=== PATIENT | female | born 1950 | race Caucasian/White ===

== ENCOUNTER 2024-06-02 11:08 | Observation (INO) ==
[2024-06-02 13:46] LABS: ALANINE AMINOTRANSFERASE 28 Units/L (12-78); ALBUMIN 3.7 g/dL (3.4-5.0); ALKALINE PHOSPHATASE 58 Units/L (46-116); ASPARTATE AMINO TRANSFERASE 25 Units/L (15-37); BLOOD UREA NITROGEN 62 mg/dL (7-18); CALCIUM 10.3 mg/dL (8.5-10.1); CARBON DIOXIDE 33.4 mmol/L (21-32); CHLORIDE 100 mmol/L (98-107); COR NA(FOR HYPERGLY) 145 mmol/L (136-145); CREATININE 1.86 mg/dL (0.55-1.02); GLUCOSE 321 mg/dL (65-99); POTASSIUM 3.9 mmol/L (3.5-5.1); SODIUM 140 mmol/L (136-145); TOTAL PROTEIN 8.1 g/dL (6.4-8.2); eGFR NON BLACK RACES 28 (>60)
[2024-06-02 13:57] LABS: BASOPHILS # (AUTO) 0.1 X10^3/uL (0.0-0.1); BASOPHILS % (AUTO) 0.5 % (0.2-1.0); EOSINOPHILS # (AUTO) 0.2 x10^3/uL (0.0-0.2); EOSINOPHILS % (AUTO) 1.4 % (0.9-2.9); HEMATOCRIT 41.6 % (36.0-47.0); HEMOGLOBIN 13.7 g/dL (12.0-16.0); LYMPHOCYTES # (AUTO) 3.8 X10^3/uL (1.3-2.9); LYMPHOCYTES % (AUTO) 32.5 % (21.0-51.0); MEAN CORPUSCULAR HEMOGLOBIN 29.3 pg (27.0-34.0); MEAN CORPUSCULAR VOLUME 88.7 fL (80.0-100.0); MEAN PLATELET VOLUME 9.3 fL (7.4-11.0); MONOCYTES # (AUTO) 0.5 x10^3/uL (0.3-0.8); MONOCYTES % (AUTO) 4.6 % (0.0-13.0); NEUTROPHILS # (AUTO) 7.2 x10^3/uL (2.2-4.8); PLATELET COUNT 295 X10^3/uL (150.0-450.0); RED BLOOD COUNT 4.69 X10^6/uL (3.5-5.4); RED CELL DISTRIBUTION WIDTH 14.2 % (11.6-16.5); WHITE BLOOD COUNT 11.7 X10^3/uL (3.6-10.0)
[2024-06-02] MEDS: LOVENOX INJ 80 MG SYR SC SCH (14:06)
[2024-06-02] MEDS: LR 1,000 ML IV 1,000 ML IV SCH (14:07)
[2024-06-02 14:33] VITALS: BMI 33.3
[2024-06-02] MEDS: NovoLIN R (or HumuLIN R) SUBCUT PRN (17:23)
[2024-06-02] MEDS: SNACK - Diabetic Appropriate PO SCH (20:37)
[2024-06-02] MEDS: DILAUDID INJ IVP PRN (23:28)
[2024-06-03 08:38] LABS: BASOPHILS # (AUTO) 0.1 X10^3/uL (0.0-0.1); EOSINOPHILS # (AUTO) 0.3 x10^3/uL (0.0-0.2); EOSINOPHILS % (AUTO) 3.2 % (0.9-2.9); HEMOGLOBIN 12.6 g/dL (12.0-16.0); LYMPHOCYTES # (AUTO) 3.6 X10^3/uL (1.3-2.9); LYMPHOCYTES % (AUTO) 46.8 % (21.0-51.0); MEAN CORPUSCULAR HEMOGLOBIN 29.2 pg (27.0-34.0); MEAN CORPUSCULAR HGB CONC 33.3 g/dL (33.0-35.0); MEAN CORPUSCULAR VOLUME 87.7 fL (80.0-100.0); MONOCYTES # (AUTO) 0.5 x10^3/uL (0.3-0.8); MONOCYTES % (AUTO) 6.8 % (0.0-13.0); NEUTROPHILS # (AUTO) 3.3 x10^3/uL (2.2-4.8); NEUTROPHILS % (AUTO) 42.2 % (42.0-75.0); PLATELET COUNT 267 X10^3/uL (150.0-450.0); RED BLOOD COUNT 4.34 X10^6/uL (3.5-5.4); RED CELL DISTRIBUTION WIDTH 13.8 % (11.6-16.5); WHITE BLOOD COUNT 7.8 X10^3/uL (3.6-10.0)
[2024-06-03 08:43] LABS: ALBUMIN 3.2 g/dL (3.4-5.0); CALCIUM 9.9 mg/dL (8.5-10.1); CARBON DIOXIDE 33.5 mmol/L (21-32); COR CA(FOR HYPOALB) 10.5 mg/dL (8.5-10.1); CREATININE 1.52 mg/dL (0.55-1.02); POTASSIUM 3.3 mmol/L (3.5-5.1); TOTAL PROTEIN 7.1 g/dL (6.4-8.2)
--- NOTE | 2024-06-03 09:55 | DR.H&P ---
H&P History & Physical for Day of: H&P Date: 06/02/24 Chief Complaint Chief Complaint: cold painful right foot History of Present Illness History of Present Illness: . This is a 73-year-old female, diabetes and who has had a nonhealing wound to her right heel with bilateral rest pain. She has had bilateral lower extremity intervention including atherectomy and angioplasty right anterior tibial artery done in April. In May had atherectomy and drug-coated angioplasty of the takeoff of the left anterior tibial artery. She has had new onset of this pain in her right foot. Past Medical History Past Medical History: Diabetes, Dyslipidemia, GERD, Gout and Hypertension Past Surgical History Surgical History: Appendectomy, , Hysterectomy and Ortho Surgery Family History Family Medical History: Diabetes Mellitus, Cancer, [place], Coronary Artery Disease and Hypertension Social History Does patient currently use any type of tobacco product: No Type of Tobacco Use: None Alcohol Use: None Drug Use: None Medications Home Medications: Home Medications Medication Instructions Recorded Confirmed Type allopurinol 100 mg tablet 100 mg PO DAILY 06/02/24 06/02/24 History atorvastatin 20 mg tablet 20 mg PO HS 06/02/24 06/02/24 History clonidine HCl 0.3 mg tablet 0.3 mg PO DAILY 06/02/24 06/02/24 History fenofibrate 160 mg tablet 160 mg PO DAILY 06/02/24 06/02/24 History furosemide 20 mg tablet 20 mg PO DAILY 06/02/24 06/02/24 History gabapentin 600 mg tablet 600 mg PO DAILY 06/02/24 06/02/24 History glimepiride 4 mg tablet 4 mg PO DAILY 06/02/24 06/02/24 History hydralazine 25 mg tablet 25 mg PO 3XD 06/02/24 06/02/24 History hydrochlorothiazide 50 mg tablet 50 mg PO DAILY 06/02/24 06/02/24 History insulin degludec 100 unit/mL (3 60 unit subcut HS 06/02/24 06/02/24 History mL) subcutaneous pen (Tresiba FlexTouch U-100 insulin) omeprazole 20 mg capsule,delayed 20 mg PO DAILY 06/02/24 06/02/24 History release Allergies Allergies Allergy/AdvReac Type Severity Reaction Status Date / Time amoxicillin [From Augmentin] Allergy Verified 04/16/24 09:49 clavulanic acid Allergy Verified 04/16/24 09:49 [From Augmentin] levofloxacin [From Levaquin] Allergy Verified 04/16/24 09:49 Labs 06/03/24 08:19 06/03/24 08:19 Labs: Laboratory WBC 7.8 X10^3/uL (3.6-10.0) 06/03/24 08:19 RBC 4.34 X10^6/uL (3.5-5.4) 06/03/24 08:19 Hgb 12.6 g/dL (12.0-16.0) 06/03/24 08:19 Hct 38.0 % (36.0-47.0) 06/03/24 08:19 MCV 87.7 fL (80.0-100.0) 06/03/24 08:19 MCH 29.2 pg (27.0-34.0) 06/03/24 08:19 MCHC 33.3 g/dL (33.0-35.0) 06/03/24 08:19 RDW 13.8 % (11.6-16.5) 06/03/24 08:19 Plt Count 267 X10^3/uL (150.0-450.0) 06/03/24 08:19 MPV 9.0 fL (7.4-11.0) 06/03/24 08:19 Neut % (Auto) 42.2 % (42.0-75.0) 06/03/24 08:19 Lymph % (Auto) 46.8 % (21.0-51.0) 06/03/24 08:19 Perry % (Auto) 6.8 % (0.0-13.0) 06/03/24 08:19 Eos % (Auto) 3.2 % (0.9-2.9) H 06/03/24 08:19 Baso % (Auto) 1.0 % (0.2-1.0) 06/03/24 08:19 Neut # (Auto) 3.3 x10^3/uL (2.2-4.8) 06/03/24 08:19 Lymph # (Auto) 3.6 X10^3/uL (1.3-2.9) H 06/03/24 08:19 Perry # (Auto) 0.5 x10^3/uL (0.3-0.8) 06/03/24 08:19 Eos # (Auto) 0.3 x10^3/uL (0.0-0.2) H 06/03/24 08:19 Baso # (Auto) 0.1 X10^3/uL (0.0-0.1) 06/03/24 08:19 Absolute Nucleated RBC 0.0 /100WBC 06/03/24 08:19 Sodium 142 mmol/L (136-145) 06/03/24 08:19 Corrected Sodium 143 mmol/L (136-145) 06/03/24 08:19 Potassium 3.3 mmol/L (3.5-5.1) L 06/03/24 08:19 Chloride 103 mmol/L (98-107) 06/03/24 08:19 Carbon Dioxide 33.5 mmol/L (21-32) H 06/03/24 08:19 BUN 48 mg/dL (7-18) H 06/03/24 08:19 Creatinine 1.52 mg/dL (0.55-1.02) H 06/03/24 08:19 Est GFR (MDRD) Af Amer 43 (>60) L 06/03/24 08:19 Est GFR (MDRD) Non-Af 36 (>60) L 06/03/24 08:19 Glucose 125 mg/dL (65-99) H 06/03/24 08:19 POC Glucose (mg/dL) 101 mg/dL (65-99) H 06/03/24 04:51 Calcium 9.9 mg/dL (8.5-10.1) 06/03/24 08:19 Corrected Calcium 10.5 mg/dL (8.5-10.1) H 06/03/24 08:19 Total Bilirubin 0.30 mg/dL (0.2-1.0) 06/03/24 08:19 AST 22 Units/L (15-37) 06/03/24 08:19 ALT 25 Units/L (12-78) 06/03/24 08:19 Alkaline Phosphatase 49 Units/L (46-116) 06/03/24 08:19 Total Protein 7.1 g/dL (6.4-8.2) 06/03/24 08:19 Albumin 3.2 g/dL (3.4-5.0) L 06/03/24 08:19 Globulin 3.9 g/dL (2.5-4.5) 06/03/24 08:19 Albumin/Globulin Ratio 0.8 Ratio (1.1-2.1) L 06/03/24 08:19 Review of Systems Constitutional: See HPI Eyes: No Symptoms Reported ENT: No Symptoms Reported Respiratory: No Symptoms Reported Cardiovascular: See HPI Gastrointestinal: No Symptoms Reported Genitourinary: No Symptoms Reported Musculoskeletal: No Symptoms Reported Skin: No Symptoms Reported Neurological: No Symptoms Reported Physical Exam Vital Signs: Vital Signs Temperature 99.4 F Temperature 98.3 F Pulse Rate [Brachial] 100 Pulse Rate [Brachial] 92 Respiratory Rate 19 Respiratory Rate 19 Blood Pressure [Right Arm] 162/75 Blood Pressure [Left Arm] 174/80 O2 Sat by Pulse Oximetry 94 O2 Sat by Pulse Oximetry 95 Oriented: Normal, Time, Person and Place Eyes: Normal Ear: Normal Nose: Normal Throat: Normal Respiratory: Clear Throughout Cardiovascular: Other (Cool right foot with no palpable pulses at the right ankle. Warm left foot with Doppler signals in the posterior tibial and anterior tibial arteries) : Normal Auscultation: Bowel Sounds: Normal Palpation: Normal Tenderness: Normal Skin: Normal Musculoskeletal: Normal Psychiatric: Normal Mood Description: Calm Affect: Normal Speech Pattern: Clear and Appropriate Assessment/Plan (1) Atherosclerosis of [place] arteries of extremities with rest pain, right leg: Status: Acute Plan: Patient placed on observation. Will begin therapeutic Lovenox. Unable to perform CT angiogram due to elevated creatinine. Found to have arteriogram of the right leg on June 04 (2) Essential (primary) hypertension: Status: Acute Plan: Home medications (3) Diabetes: Qualifiers: Diabetes mellitus type: type 2 Diabetes mellitus care home insulin use: with terminal computer operator use Diabetes mellitus complication status: with circulatory complication Status: Acute Plan: 800-calorie ADA diet and sliding scale insulin (4) Gout: Status: Acute Plan: Home medications (5) Gastro-esophageal reflux disease without esophagitis: Status: Acute Plan: po protonix
[2024-06-03] MEDS: APRESOLINE TAB 25 MG PO SCH (14:30)
[2024-06-03] MEDS: ASPIRIN EC 81 MG PO SCH (14:30)
[2024-06-03] MEDS: ZYLOPRIM PO SCH (14:30)
[2024-06-03] MEDS: HYDROCHLOROTHIAZIDE 25 MG TAB PO SCH (14:30)
[2024-06-03] MEDS: NEURONTIN TAB 600 MG PO SCH (14:31)
[2024-06-03] MEDS: PROTONIX TAB 40 MG PO SCH (14:31)
[2024-06-03] MEDS: LASIX PO SCH (14:31)
[2024-06-03] MEDS: LIPITOR TAB 20 MG PO SCH (14:31)
[2024-06-03] MEDS: TRICOR TAB 48 MG PO SCH (14:32)
[2024-06-03] MEDS: CATAPRES TAB 0.3 MG PO SCH (14:32)
[2024-06-03] MEDS ORDERED: CONSULT PHARMACY - POTASSIUM & MAGNESIUM XX SCH (20:00)
[2024-06-03] MEDS: KLOR-CON PO SCH (20:47)
[2024-06-03] MEDS: MAG-OX TAB PO SCH (20:47)
[2024-06-03] MEDS: HIBICLENS WASH EXT ONE (22:03)
--- NOTE | 2024-06-03 23:42 | NOTE.SOAP ---
Soap Note Note for Day of Date of Exam: 06/03/24 Subjective Data Subjective Data: Still with cool right forfoot , c/o pain there. Objective Data Temperature: 98.6 F Pulse Rate: 76 Respiratory Rate: 18 Blood Pressure: 140/63 O2 Sat by Pulse Oximetry: 94 Objective Data: as above Assessment Assessment: critical ischemia right foot. Plan Plan: Plan on table arteriogram tomorrow and appropriate arterial intervention.
[2024-06-04 06:27] LABS: BASOPHILS # (AUTO) 0.1 X10^3/uL (0.0-0.1); BASOPHILS % (AUTO) 0.9 % (0.2-1.0); EOSINOPHILS # (AUTO) 0.3 x10^3/uL (0.0-0.2); EOSINOPHILS % (AUTO) 3.2 % (0.9-2.9); HEMATOCRIT 38.7 % (36.0-47.0); HEMOGLOBIN 12.9 g/dL (12.0-16.0); LYMPHOCYTES # (AUTO) 4.5 X10^3/uL (1.3-2.9); LYMPHOCYTES % (AUTO) 54.5 % (21.0-51.0); MEAN CORPUSCULAR HEMOGLOBIN 29.2 pg (27.0-34.0); MEAN CORPUSCULAR HGB CONC 33.3 g/dL (33.0-35.0); MEAN CORPUSCULAR VOLUME 87.7 fL (80.0-100.0); MEAN PLATELET VOLUME 9.3 fL (7.4-11.0); MONOCYTES # (AUTO) 0.5 x10^3/uL (0.3-0.8); MONOCYTES % (AUTO) 6.3 % (0.0-13.0); NEUTROPHILS # (AUTO) 2.9 x10^3/uL (2.2-4.8); NEUTROPHILS % (AUTO) 35.1 % (42.0-75.0); PLATELET COUNT 274 X10^3/uL (150.0-450.0); RED BLOOD COUNT 4.41 X10^6/uL (3.5-5.4); RED CELL DISTRIBUTION WIDTH 13.7 % (11.6-16.5); WHITE BLOOD COUNT 8.3 X10^3/uL (3.6-10.0)
[2024-06-04 07:02] LABS: ALANINE AMINOTRANSFERASE 29 Units/L (12-78); ALBUMIN 3.4 g/dL (3.4-5.0); ALKALINE PHOSPHATASE 52 Units/L (46-116); ASPARTATE AMINO TRANSFERASE 25 Units/L (15-37); BLOOD UREA NITROGEN 40 mg/dL (7-18); CALCIUM 10.2 mg/dL (8.5-10.1); CARBON DIOXIDE 32.2 mmol/L (21-32); CHLORIDE 103 mmol/L (98-107); COR NA(FOR HYPERGLY) 143 mmol/L (136-145); CREATININE 1.57 mg/dL (0.55-1.02); GLUCOSE 150 mg/dL (65-99); MAGNESIUM 1.9 mg/dL (2.0-2.9); POTASSIUM 3.9 mmol/L (3.5-5.1); SODIUM 142 mmol/L (136-145); TOTAL PROTEIN 7.5 g/dL (6.4-8.2); eGFR NON BLACK RACES 34 (>60)
[2024-06-04] MEDS: NS 1,000 ML IV 1,000 ML ONE (11:15)
[2024-06-04] MEDS: ANCEF VIAL 1 GRAM ONE (11:45)
[2024-06-04] MEDS: NS 1,000 ML IV 700 ML IV PRN (11:45)
[2024-06-04] MEDS: NS 100 ML IV 100 ML ONE (11:45)
[2024-06-04] MEDS: VERSED IVP PRN (11:45)
[2024-06-04] MEDS ORDERED: PRECEDEX INJ VIAL ONE (11:46)
[2024-06-04] MEDS: VERSED ONE (11:46)
[2024-06-04] MEDS ORDERED: KETAMINE HCL ONE (11:46)
[2024-06-04] MEDS: FENTANYL VIAL INJ 100 mcg ONE (11:46)
[2024-06-04] MEDS: ANCEF VIAL 1 GRAM IV PRN (11:53)
[2024-06-04] MEDS: PRECEDEX INJ VIAL IVP PRN (11:54)
[2024-06-04] MEDS: PROPOFOL IVP PRN (11:54)
[2024-06-04] MEDS: KETAMINE HCL IV PRN (11:55)
[2024-06-04] MEDS: FENTANYL VIAL INJ 100 mcg IVP PRN (11:58)
[2024-06-04] MEDS: VISIPAQUE 100 ML ONE (12:15)
[2024-06-04] MEDS: VISIPAQUE 50 ML ONE (12:15)
[2024-06-04] MEDS: MARCAINE 0.5% ONE (12:15)
[2024-06-04] MEDS: HEPARIN 1,000 UNIT/500 ML-NS 3,000 UNIT/1,500 ML IV.SOLN ONE (12:15)
[2024-06-04] MEDS: HEPARIN SODIUM INJ 5000 UNITS ONE ×2 (12:17→13:18)
[2024-06-04] MEDS: DIPRIVAN VIAL 40 ML ONE (12:20)
[2024-06-04] MEDS: DIPRIVAN VIAL 20 ML ONE (13:01)
[2024-06-04] MEDS: NITROGLYCERIN IV PREMIX 50 MG 50 MG/250 ML BAG ONE (13:14)
[2024-06-04] MEDS: HEPARIN SODIUM INJ 5000 UNITS IVP PRN (13:17)
--- NOTE | 2024-06-04 13:51 | OR.IMMED ---
IMMEDIATE POST-OP NOTE Immediate Post-Op Note Date of surgery/procedure: 06/04/24 Pre-Op Diagnosis: Critical ischemia right leg, primarily right forefoot Post-Op Diagnosis: same , see findings Procedure: Aortogram, arteriogram right leg, atherectomy and angioplasty proximal right anterior tibial artery takeoff, angioplasty of entire right anterior tibial artery with extension down into the dorsalis pedis with better runoff. The only runoff is the anterior tibial artery which ended in the distal ankle but now does run continuously into the foot Description of Procedure: Dictated Surgeon/Strategic Marketing Leader: Dr. Ryder Hernandez Findings: Normal iliac, superficial femoral and popliteal artery with only runoff to the leg being the anterior tibial tendons in the distal leg with very poor runoff into the foot. We were able to get open the dorsalis pedis and improve runoff. It is still not great. Estimated Blood Loss: 100 cc Progress Notes: Patient returned to the floor. Begin diet. Continue Lovenox. Observe foot on right.
[2024-06-04] MEDS: NEURONTIN CAP 300 MG PO SCH (14:36)
[2024-06-05 06:02] LABS: BASOPHILS # (AUTO) 0.1 X10^3/uL (0.0-0.1); BASOPHILS % (AUTO) 0.9 % (0.2-1.0); EOSINOPHILS # (AUTO) 0.3 x10^3/uL (0.0-0.2); EOSINOPHILS % (AUTO) 4.1 % (0.9-2.9); HEMATOCRIT 35.5 % (36.0-47.0); HEMOGLOBIN 11.6 g/dL (12.0-16.0); LYMPHOCYTES # (AUTO) 3.8 X10^3/uL (1.3-2.9); LYMPHOCYTES % (AUTO) 49.5 % (21.0-51.0); MEAN CORPUSCULAR HEMOGLOBIN 28.9 pg (27.0-34.0); MEAN CORPUSCULAR HGB CONC 32.8 g/dL (33.0-35.0); MEAN CORPUSCULAR VOLUME 87.9 fL (80.0-100.0); MEAN PLATELET VOLUME 9.1 fL (7.4-11.0); MONOCYTES # (AUTO) 0.5 x10^3/uL (0.3-0.8); MONOCYTES % (AUTO) 7.2 % (0.0-13.0); NEUTROPHILS # (AUTO) 2.9 x10^3/uL (2.2-4.8); NEUTROPHILS % (AUTO) 38.3 % (42.0-75.0); PLATELET COUNT 247 X10^3/uL (150.0-450.0); RED BLOOD COUNT 4.04 X10^6/uL (3.5-5.4); RED CELL DISTRIBUTION WIDTH 13.6 % (11.6-16.5); WHITE BLOOD COUNT 7.6 X10^3/uL (3.6-10.0)
[2024-06-05 06:14] LABS: CALCIUM 9.7 mg/dL (8.5-10.1); CARBON DIOXIDE 32.5 mmol/L (21-32); CREATININE 1.36 mg/dL (0.55-1.02); POTASSIUM 3.9 mmol/L (3.5-5.1)
[2024-06-05] MEDS: NS 1,000 ML IV 1,000 ML ONE (12:10)
[2024-06-05] MEDS ORDERED: BRIDION ONE (12:24)
[2024-06-05] MEDS ORDERED: XYLOCAINE 2 % (PLAIN) ONE (12:25)
[2024-06-05] MEDS ORDERED: ZEMURON 100 MG VIAL ONE (12:25)
[2024-06-05] MEDS ORDERED: PEPCID 20 MG VIAL ONE (12:25)
[2024-06-05] MEDS ORDERED: REGLAN INJ 10 MG VIAL ONE (12:25)
[2024-06-05] MEDS ORDERED: ZOFRAN INJ 4 MG VIAL ONE (12:25)
[2024-06-05] MEDS ORDERED: ZOFRAN INJ 4 MG VIAL IVP PRN (12:26)
[2024-06-05] MEDS ORDERED: BENADRYL INJ 50 MG VIAL IVP PRN (12:26)
[2024-06-05] MEDS ORDERED: BARHEMSYS INJ IVP PRN (12:26)
[2024-06-05] MEDS ORDERED: DILAUDID INJ IVP PRN (12:26)
[2024-06-05] MEDS ORDERED: DIPRIVAN VIAL 20 ML ONE (12:30)
[2024-06-05] MEDS ORDERED: VERSED ONE (12:30)
[2024-06-05] MEDS ORDERED: FENTANYL VIAL INJ 100 mcg ONE (12:30)
[2024-06-05] MEDS: PEPCID 20 MG VIAL IVP PRN (12:40)
[2024-06-05] MEDS: ZOFRAN INJ 4 MG VIAL IVP PRN (12:40)
[2024-06-05] MEDS: REGLAN INJ 10 MG VIAL IVP PRN (12:40)
[2024-06-05] MEDS: NS 100 ML IV 100 ML ONE (13:13)
[2024-06-05] MEDS: ANCEF VIAL 1 GRAM ONE (13:13)
--- NOTE | 2024-06-05 13:13 | NOTE.SOAP ---
Soap Note Note for Day of Date of Exam: 06/05/24 Subjective Data Subjective Data: Postoperative day 1 after arterial invention of the right leg with balloon angioplasty of the dorsalis pedis and atherectomy and angioplasty of the proximal right anterior tibial artery which is the only runoff into the right leg below the knee. She is doing better. Her pain is resolved. The right forefoot is now warm where it was not before.. Objective Data Temperature: 98.1 F Pulse Rate: 78 Respiratory Rate: 18 Blood Pressure: 162/78 O2 Sat by Pulse Oximetry: 93 Objective Data: Right foot is warm now. Planning osteotomy by Dr. Shook to help improve blood flow to the right heel. Arteriogram shows no obvious direct inline flow into the hindfoot. Assessment Assessment: Status post arterial intervention right leg with improvement Plan Plan: To OR today by Dr. Lai See his note.
[2024-06-05] MEDS: NS 1,000 ML IV 800 ML IV PRN (13:15)
--- NOTE | 2024-06-05 13:16 | DR.CONSULT ---
CONSULT Consultation for Day of: Date: 06/05/24 Chief Complaint Chief Complaint: Right foot wound Allergies Allergies Allergy/AdvReac Type Severity Reaction Status Date / Time amoxicillin [From Augmentin] Allergy Verified 04/16/24 09:49 clavulanic acid Allergy Verified 04/16/24 09:49 [From Augmentin] levofloxacin [From Levaquin] Allergy Verified 04/16/24 09:49 History of Present Illness History of Present Illness: Patient is well known to Dr. Lai. He previously saw her this week in the office where there was concern for loss vascular flow to her right foot and she has a history of a wound to that same foot. Dr. Hernandez was contacted as there was concern for ischemia. Mary admitted the patient here in [place] and took her to OR on 06/04/24 for Aortogram, arteriogram right leg, atherectomy and angioplasty proximal right anterior tibial artery takeoff, angioplasty of entire right anterior tibial artery with extension down into the dorsalis pedis with better runoff. The only runoff is the anterior tibial artery which ended in the distal ankle but now does run continuously into the foot. Mary had spoke to Ming yesterday stating the patient will have tough time healing wound. Dr. Lai called patient and spoke to about transverse tibial transport for her right leg to increase blood and help wound. and patient were in agreement. Past Medical History Past Medical History: Diabetes, Dyslipidemia, GERD, Gout and Hypertension Past Surgical History Surgical History: Appendectomy, , Hysterectomy and Ortho Surgery Family History Family Medical History: Diabetes Mellitus, Cancer, [place], Coronary Artery Disease and Hypertension Social History Does patient currently use any type of tobacco product: No Type of Tobacco Use: None Alcohol Use: None Drug Use: None Medications Home Medications: amoxicillin [From Augmentin] Allergy (Verified 04/16/24 09:49) clavulanic acid [From Augmentin] Allergy (Verified 04/16/24 09:49) levofloxacin [From Levaquin] Allergy (Verified 04/16/24 09:49) CONTINUE taking the following medications allopurinol 100 mg tablet 100 mg PO DAILY 06/02/24 [History] atorvastatin 20 mg tablet 20 mg PO HS 06/02/24 [History] clonidine HCl 0.3 mg tablet 0.3 mg PO DAILY 06/02/24 [History] fenofibrate 160 mg tablet 160 mg PO DAILY 06/02/24 [History] furosemide 20 mg tablet 20 mg PO DAILY 06/02/24 [History] gabapentin 600 mg tablet 600 mg PO DAILY 06/02/24 [History] glimepiride 4 mg tablet 4 mg PO DAILY 06/02/24 [History] hydralazine 25 mg tablet 25 mg PO 3XD 06/02/24 [History] hydrochlorothiazide 50 mg tablet 50 mg PO DAILY 06/02/24 [History] insulin degludec 100 unit/mL (3 mL) subcutaneous pen (Tresiba FlexTouch U-100 insulin) 60 unit subcut HS 06/02/24 [History] omeprazole 20 mg capsule,delayed release 20 mg PO DAILY 06/02/24 [History] Physical Exam Vital Signs: Vital Signs Temperature 98.1 F Temperature 97.9 F Pulse Rate [Brachial] 73 Pulse Rate [Brachial] 70 Pulse Rate 78 Respiratory Rate 18 Respiratory Rate 18 Respiratory Rate 19 Respiratory Rate 18 Respiratory Rate 18 Blood Pressure [Right Arm] 138/70 Blood Pressure [Right Arm] 146/65 Blood Pressure 162/78 O2 Sat by Pulse Oximetry 93 O2 Sat by Pulse Oximetry 97 O2 Sat by Pulse Oximetry 96 Oriented: Normal, Time and Person Skin: Other (Right foot: DP pulse 1/4 and PT pulse absent. CFT WNL to all digits. Dressing is covering the right foot where wound is. This was not taken down now as patient is heading to OR today. ) Plan (1) Atherosclerosis of [place] arteries of extremities with rest pain, right leg: Status: Acute Plan: Mary performed on 06/04/2024 consisting of aortogram, arteriogram right leg, atherectomy and angioplasty proximal right anterior tibial artery takeoff, angioplasty of entire right anterior tibial artery with extension down into the dorsalis pedis with better runoff. The only runoff is the anterior tibial artery which ended in the distal ankle but now does run continuously into the foot (2) Essential (primary) hypertension: Status: Acute (3) Diabetes: Status: Acute Qualifiers: Diabetes mellitus type: type 2 Diabetes mellitus fdc insulin use: with terminal carman use Diabetes mellitus complication status: with circulatory complication (4) Gout: Status: Acute (5) Gastro-esophageal reflux disease without esophagitis: Status: Acute (6) Wound of right foot: Status: Acute Plan: - To OR for transverse tibia transport to right leg to help increase blood to heal wound as patient has non reconstructable PT and PL artery but DP was reconstructed. Mary believes he has no other options for the right leg. - Hlad discussed with patient about TTT to RLE to help increase blood flow to help heal this wound. Patient and in agreement. - NPO since midnight. - To OR today for above procedure.
[2024-06-05] MEDS: BETADINE SOLN ONE (13:23)
[2024-06-05] MEDS: VERSED IVP PRN (13:25)
[2024-06-05] MEDS ORDERED: ULTANE GAS IN ONE (13:27)
[2024-06-05] MEDS ORDERED: PRECEDEX INJ VIAL ONE (13:27)
[2024-06-05] MEDS ORDERED: KETAMINE HCL ONE (13:27)
[2024-06-05] MEDS: ANCEF VIAL 1 GRAM IV PRN (13:30)
[2024-06-05] MEDS: ZEMURON 100 MG VIAL IVP PRN (13:33)
[2024-06-05] MEDS: KETAMINE HCL IV PRN (13:33)
[2024-06-05] MEDS: DIPRIVAN VIAL 120 ML IVP PRN (13:33)
[2024-06-05] MEDS: FENTANYL VIAL INJ 100 mcg IVP PRN (13:33)
[2024-06-05] MEDS ORDERED: OFIRMEV IV 1000 MG VIAL 1,000 MG/100 ML VIAL IV ONE (13:40)
[2024-06-05] MEDS: MARCAINE 0.25% INJ ONE (13:43)
[2024-06-05] MEDS: OFIRMEV IV 1000 MG VIAL 1,000 MG/100 ML VIAL IV PRN (13:46)
[2024-06-05] MEDS: EPHEDRINE SULFATE INJ IVP PRN (13:46)
[2024-06-05] MEDS ORDERED: DILAUDID INJ ONE (14:02)
[2024-06-05] MEDS: DILAUDID INJ IVP PRN (14:31)
[2024-06-05] MEDS: PRECEDEX INJ VIAL IVP PRN (15:02)
[2024-06-05] MEDS: BRIDION IVP PRN (15:26)
--- NOTE | 2024-06-05 15:52 | DR.OPNOTE ---
OP NOTE Pre-Op Diagnosis: critical ischemia right leg Post-Op Diagnosis: same Procedure Date Date Of Procedure: 06/04/24 Procedure: PROCEDURE: Diagnostic aortogram, diagnostic arteriogram right leg, atherectomy and angioplasty right anterior tibial artery takeoff, angioplasty distal right anterior tibial artery and dorsalis pedis artery. NARRATIVE: The patient was taken to the operative suite and placed in the supine position. The left groin and entire right leg were prepped and draped in sterile fashion. Patient was given intravenous sedation supervised by myself. Timeout for the procedure obtained. Ultrasound used to identify the femoral artery in the left groin and the skin overlying it infiltrated with 0.5% Marcaine. Ultrasound used to guide puncture of the left femoral artery and a 0.012 inch guidewire placed. Incision made over the guidewire at the skin edge with a #11 knife blade and the micro sheath placed over the guidewire into the femoral artery. Small wire exchanged for a 0.035 inch a Advantage Glidewire and the micro sheath exchanged for a 5 [place] vascular sheath. Patient given 5000 units of intravenous heparin. Omni catheter placed over the guidewire into the aorta and power injector used to perform aortogram showing normal aorta and iliac arteries . The Omni catheter was then used to direct the guidewire down the right common iliac artery to the distal right external iliac artery. The Omni catheter exchanged for a [place] catheter and sequential arteriograms performed of the right leg showing intact right superficial femoral and popliteal arteries with the only vessel going past the knee to be the anterior tibial artery which ended in the ankle. There was very poor collateral flow into the right foot. The [place] catheter removed and over the guidewire the 5 [place] sheath was exchanged for a 7 [place] Catpult Sheath which was parked distal right superficial femoral artery. [place] catheter and the 0.035 guidewire used to traverse the arteries of the right leg ultimately ending in the right anterior tibial artery. [place] catheter used to exchange 0.035 inch wire for a 0.014 inch Thruway wire. Over the Thruway wire we placed the 1.6 mm Jetstream atherectomy device and performed atherectomy of the proximal right anterior tibial artery. This was removed and then we balloon dilated the entire anterior tibial artery down to where it ended in the ankle with a 2.5 mm x 200 mm [place] balloon inflated for 1 minute. We then exchanged the [place] catheter for a V-18 wire and was able to get all the way down into the dorsalis pedis into the right foot. We then carefully dilated the dorsalis pedis artery twice with the 2.5 mm balloon holding the balloon open for at least 1 minute each time . Post procedure arteriogram showed excellent flow through the dorsalis pedis but there was still poor collateral flow although was improved. There is no good in line flow to the hindfoot where there is a nonhealing wound. Wires and devices removed from the [place] sheath. This sheath pulled back into the aorta and a 0.035 guidewire placed. [place] sheath exchanged over the wire for a Angio-Seal device used to close the puncture of the left femoral artery. Patient taken to same-day surgery in good condition. Type of Anesthesia: Local (0.5% Marcaine) Anesthesia Comment: Plus MAC Findings: Intact iliac, superficial femoral and popliteal arteries. Occluded peroneal and posterior tibial arteries. Only vessel open below the knee is the anterior tibial artery which ended in the distal ankle with poor collateral flow of the right foot. This was preintervention Type of Fluids Used:: Lactated Ringers Total Amount of Fluid Infused:: 700cc Urine output: 400cc EBL: <100 cc Complications:: none Needle/Sponge Count:: correct Disposition/Condition: Pt. tolerated procedure without difficulty. Taken to [facility] in stable condition.
[2024-06-05] MEDS: PERCOCET TAB 5/325 MG PO PRN (23:52)
[2024-06-06] MEDS: LOVENOX INJ 80 MG SYR SC SCH (05:27)
[2024-06-06 06:25] VITALS: RESP 20
[2024-06-06 07:12] LABS: BASOPHILS # (AUTO) 0.1 X10^3/uL (0.0-0.1); BASOPHILS % (AUTO) 1.4 % (0.2-1.0); EOSINOPHILS # (AUTO) 0.2 x10^3/uL (0.0-0.2); EOSINOPHILS % (AUTO) 2.4 % (0.9-2.9); HEMATOCRIT 32.1 % (36.0-47.0); HEMOGLOBIN 10.8 g/dL (12.0-16.0); LYMPHOCYTES % (AUTO) 30.1 % (21.0-51.0); MEAN CORPUSCULAR HEMOGLOBIN 29.5 pg (27.0-34.0); MEAN CORPUSCULAR HGB CONC 33.7 g/dL (33.0-35.0); MEAN CORPUSCULAR VOLUME 87.6 fL (80.0-100.0); MEAN PLATELET VOLUME 9.7 fL (7.4-11.0); MONOCYTES # (AUTO) 0.6 x10^3/uL (0.3-0.8); NEUTROPHILS # (AUTO) 5.9 x10^3/uL (2.2-4.8); NEUTROPHILS % (AUTO) 60.1 % (42.0-75.0); PLATELET COUNT 230 X10^3/uL (150.0-450.0); RED BLOOD COUNT 3.66 X10^6/uL (3.5-5.4); RED CELL DISTRIBUTION WIDTH 13.9 % (11.6-16.5); WHITE BLOOD COUNT 9.8 X10^3/uL (3.6-10.0)
[2024-06-06 07:29] LABS: ALBUMIN 2.9 g/dL (3.4-5.0); CALCIUM 9.5 mg/dL (8.5-10.1); CARBON DIOXIDE 29.7 mmol/L (21-32); COR CA(FOR HYPOALB) 10.4 mg/dL (8.5-10.1); CREATININE 1.31 mg/dL (0.55-1.02); MAGNESIUM 1.7 mg/dL (2.0-2.9); POTASSIUM 3.9 mmol/L (3.5-5.1); TOTAL PROTEIN 6.5 g/dL (6.4-8.2)
[2024-06-06] MEDS ORDERED: CONSULT PHARMACY - POTASSIUM & MAGNESIUM XX SCH (08:00)
--- NOTE | 2024-06-06 08:07 | NOTE.SOAP ---
Soap Note Note for Day of Date of Exam: 06/06/24 Subjective Data Subjective Data: Post-Op Day 1. Had some saturation in dressing that was reinforced last night. Denies any N/V/F/C/SoB. Has had trouble with pain control, usually Farwell works better for her. Objective Data Objective Data: Right Lower Extremity: External fixator in place to anterior mid tibia. Kerlex removed. Sponges left in place, do notappear saturated. Reapplied Kerlex. The frame is stable and pins are in place. Wound to right lateral heel dressing taken down. Looks stable. Applied aquacell Ag pad dressing over. No signs or symptoms concerning for DVT or PE. Assessment Assessment: POD#1 Tibia Osteotomy and Wound debridement, right leg Plan Plan: - In terms of dressing to ex fix, she should keep dressing intact. In terms of heel wound, she can change that with a Aquacell Ag Pad every 2-3 days. I wrote this on a script. - In terms of weight bearing, she can be 50% or less weight bearing to RLE with crutches. I also gave her a script for a Wheelchair. - Pain control has been tough for her, she has better success with Farwell per patient. Rx in chart for Farwell. - Rx in chart for DVT Px using Lovenox. - Rx in chart for Zofran. - Okay for discharge today from [facility] once seen by Dr. Hernandez.
[2024-06-06] MEDS: BENADRYL INJ 50 MG VIAL IV ONE (08:45)
[2024-06-06] MEDS: MAG-OX TAB PO SCH (08:47)
[2024-06-06] MEDS: PERCOCET TAB 5/325 MG PO PRN (08:47)
[2024-06-06 08:54] VITALS: BP 148/62; PULSE 104; TEMP 98.2; O2SAT 94
--- NOTE | 2024-06-06 11:19 | W.DIS.FURT ---
Summary of Discharge Discharge Summary of Date Date of Exam: 06/06/24 Admission Date Date of Admission: 06/02/24 Admission Diagnosis Hospital Course: This patient is a 73-year-old female with history of bilateral critical ischemia who has had bilateral lower extremity arterial interventions within the past several months . She presented with painful and cool appearing right forefoot. She was started on therapeutic Lovenox and taken back to the operating suite on where she underwent on table arteriogram showing only one-vessel runoff below the knee by the anterior tibial artery which ended in the ankle and did not extend to the foot. I was able to get a wire across this and balloon the dorsalis pedis to increase blood flow th the foot as well as atherectomy and drug-coated balloon angioplasty of the takeoff of the anterior tibial artery. Post procedure her foot is warm and pain resolved. However because of the nonhealing wound to the right heel and the fact she has very poor blood flow otherwise with poor collateral flow Dr. Lai performed a tibial osteotomy in hopes to increase blood flow to the foot overall. She be discharged today on usual medications with the addition of [place], 5 mg tablets 1 every 6 hours PRN pain . She will follow-up with Dr. Lai on June 08. I will see her in my office on June 10 in follow-up. Vital Signs: Vital Signs (72 hours) 06/05/24 13:13 06/03/24 23:41 06/03/24 12:00 Temperature 98.1 F 98.6 F 98.2 F Pulse Rate 78 76 Pulse Rate [Brachial] 95 H Respiratory Rate 18 18 19 Blood Pressure 162/78 140/63 Blood Pressure [Right Arm] 194/88 O2 Sat by Pulse Oximetry 93 L 94 L 100 Oxygen Delivery Method Room Air FIO2% 06/03/24 14:34 06/03/24 15:04 06/03/24 16:00 Temperature 98.7 F Pulse Rate Pulse Rate [Brachial] 99 H Respiratory Rate 20 18 18 Blood Pressure Blood Pressure [Right Arm] 164/77 O2 Sat by Pulse Oximetry 93 L Oxygen Delivery Method Room Air FIO2% 06/03/24 19:00 06/03/24 20:00 06/03/24 21:10 Temperature 98.6 F Pulse Rate Pulse Rate [Brachial] 76 Respiratory Rate 18 18 Blood Pressure Blood Pressure [Right Arm] 140/63 O2 Sat by Pulse Oximetry 94 L Oxygen Delivery Method Room Air Room Air FIO2% 06/03/24 21:40 06/04/24 00:00 06/04/24 03:58 Temperature 97.9 F 97.8 F Pulse Rate Pulse Rate [Brachial] 74 79 Respiratory Rate 18 18 18 Blood Pressure Blood Pressure [Right Arm] 139/65 130/60 O2 Sat by Pulse Oximetry 94 L 95 Oxygen Delivery Method Room Air Room Air FIO2% 06/04/24 08:00 06/04/24 07:00 06/04/24 11:30 Temperature 98.2 F Pulse Rate 62 Pulse Rate [Brachial] 109 H Respiratory Rate 16 18 Blood Pressure 128/72 Blood Pressure [Right Arm] 181/76 O2 Sat by Pulse Oximetry 95 94 L Oxygen Delivery Method Room Air Room Air Room Air FIO2% 06/04/24 13:37 06/04/24 13:52 06/04/24 14:07 Temperature 98.1 F 98.1 F 97.9 F Pulse Rate Pulse Rate [Brachial] 59 L 52 L 54 L Respiratory Rate 17 17 17 Blood Pressure Blood Pressure [Right Arm] 122/58 124/60 113/57 O2 Sat by Pulse Oximetry 97 99 100 Oxygen Delivery Method Nasal Cannula Nasal Cannula Nasal Cannula FIO2% 2 2 2 06/04/24 14:22 06/04/24 14:37 06/04/24 15:07 Temperature 97.9 F 98.0 F 98.1 F Pulse Rate Pulse Rate [Brachial] 57 L 54 L 56 L Respiratory Rate 17 18 18 Blood Pressure Blood Pressure [Right Arm] 123/61 126/61 126/64 O2 Sat by Pulse Oximetry 97 98 96 Oxygen Delivery Method Nasal Cannula Nasal Cannula Nasal Cannula FIO2% 2 2 2 06/04/24 16:07 06/04/24 17:07 06/04/24 18:07 Temperature 98.3 F 97.7 F 97.9 F Pulse Rate Pulse Rate [Brachial] 61 57 L 73 Respiratory Rate 18 16 18 Blood Pressure Blood Pressure [Right Arm] 127/63 129/68 136/62 O2 Sat by Pulse Oximetry 95 99 99 Oxygen Delivery Method Nasal Cannula Nasal Cannula Nasal Cannula FIO2% 2 06/04/24 19:00 06/04/24 20:00 06/04/24 21:24 Temperature 98.8 F Pulse Rate Pulse Rate [Brachial] 73 Respiratory Rate 20 20 Blood Pressure Blood Pressure [Right Arm] 166/70 O2 Sat by Pulse Oximetry 93 L Oxygen Delivery Method Room Air Nasal Cannula FIO2% 06/05/24 01:53 06/05/24 05:47 06/04/24 21:54 Temperature Pulse Rate Pulse Rate [Brachial] Respiratory Rate 18 18 18 Blood Pressure Blood Pressure [Right Arm] O2 Sat by Pulse Oximetry Oxygen Delivery Method FIO2% 06/04/24 23:48 06/05/24 02:23 06/05/24 04:00 Temperature 97.6 F 98.0 F Pulse Rate Pulse Rate [Brachial] 71 64 Respiratory Rate 18 17 18 Blood Pressure Blood Pressure [Right Arm] 153/69 127/63 O2 Sat by Pulse Oximetry 95 94 L Oxygen Delivery Method Nasal Cannula Nasal Cannula FIO2% 06/05/24 06:17 06/05/24 08:00 06/05/24 07:00 Temperature 97.9 F Pulse Rate Pulse Rate [Brachial] 70 Respiratory Rate 18 19 Blood Pressure Blood Pressure [Right Arm] 146/65 O2 Sat by Pulse Oximetry 96 Oxygen Delivery Method Room Air Room Air FIO2% 06/05/24 12:34 06/05/24 12:00 06/05/24 15:36 Temperature 98.1 F 97.2 F L Pulse Rate 78 81 Pulse Rate [Brachial] 73 Respiratory Rate 18 18 16 Blood Pressure 162/78 138/63 Blood Pressure [Right Arm] 138/70 O2 Sat by Pulse Oximetry 93 L 97 95 Oxygen Delivery Method Room Air Room Air Aerosol Face Tent FIO2% 06/05/24 15:41 06/05/24 15:46 06/05/24 15:51 Temperature Pulse Rate 75 77 76 Pulse Rate [Brachial] Respiratory Rate 18 18 18 Blood Pressure 123/59 123/58 129/60 Blood Pressure [Right Arm] O2 Sat by Pulse Oximetry 95 95 96 Oxygen Delivery Method Aerosol Face Tent Aerosol Face Tent Nasal Cannula FIO2% 06/05/24 15:56 06/05/24 16:01 06/05/24 16:06 Temperature 97.9 F Pulse Rate 74 72 77 Pulse Rate [Brachial] Respiratory Rate 18 18 18 Blood Pressure 158/58 137/60 131/59 Blood Pressure [Right Arm] O2 Sat by Pulse Oximetry 98 97 97 Oxygen Delivery Method Nasal Cannula Nasal Cannula Nasal Cannula FIO2% 06/05/24 16:10 06/05/24 16:25 06/05/24 16:40 Temperature 97.7 F 97.8 F 97.7 F Pulse Rate Pulse Rate [Brachial] 74 76 75 Respiratory Rate 18 17 19 Blood Pressure Blood Pressure [Right Arm] 135/64 132/59 132/60 O2 Sat by Pulse Oximetry 96 96 96 Oxygen Delivery Method Nasal Cannula Nasal Cannula Nasal Cannula FIO2% 06/05/24 16:55 06/05/24 17:10 06/05/24 18:10 Temperature 97.6 F 97.7 F Pulse Rate Pulse Rate [Brachial] 72 73 Respiratory Rate 20 18 20 Blood Pressure Blood Pressure [Right Arm] 149/63 152/65 O2 Sat by Pulse Oximetry 97 97 Oxygen Delivery Method Nasal Cannula Room Air FIO2% 06/05/24 18:10 06/05/24 18:40 06/05/24 21:44 Temperature 97.8 F Pulse Rate Pulse Rate [Brachial] 72 Respiratory Rate 21 18 22 Blood Pressure Blood Pressure [Right Arm] 148/64 O2 Sat by Pulse Oximetry 98 Oxygen Delivery Method Room Air FIO2% 06/05/24 22:14 06/06/24 00:00 06/05/24 20:00 Temperature 98.4 F 98.0 F Pulse Rate Pulse Rate [Brachial] 91 H 81 Respiratory Rate 18 20 19 Blood Pressure Blood Pressure [Right Arm] 174/79 161/70 O2 Sat by Pulse Oximetry 94 L 98 Oxygen Delivery Method Room Air Room Air FIO2% 06/05/24 19:00 06/05/24 23:52 06/06/24 00:52 Temperature Pulse Rate Pulse Rate [Brachial] Respiratory Rate 20 24 Blood Pressure Blood Pressure [Right Arm] O2 Sat by Pulse Oximetry Oxygen Delivery Method Room Air FIO2% 06/06/24 02:10 06/06/24 03:56 06/06/24 02:40 Temperature Pulse Rate Pulse Rate [Brachial] Respiratory Rate 24 24 18 Blood Pressure Blood Pressure [Right Arm] O2 Sat by Pulse Oximetry Oxygen Delivery Method FIO2% 06/06/24 04:00 06/06/24 05:30 06/06/24 07:00 Temperature 98.4 F Pulse Rate Pulse Rate [Brachial] 107 H Respiratory Rate 18 20 20 Blood Pressure Blood Pressure [Right Arm] 178/81 O2 Sat by Pulse Oximetry 98 Oxygen Delivery Method Room Air FIO2% 06/06/24 07:00 06/06/24 08:47 06/06/24 08:00 Temperature 98.2 F Pulse Rate Pulse Rate [Brachial] 104 H Respiratory Rate 20 20 20 Blood Pressure Blood Pressure [Right Arm] 148/62 O2 Sat by Pulse Oximetry 94 L Oxygen Delivery Method Room Air FIO2% 06/06/24 07:00 06/06/24 10:53 06/06/24 09:47 Temperature Pulse Rate Pulse Rate [Brachial] Respiratory Rate 20 19 Blood Pressure Blood Pressure [Right Arm] O2 Sat by Pulse Oximetry Oxygen Delivery Method Room Air FIO2% Labs: Laboratory Last Values WBC 9.8 X10^3/uL (3.6-10.0) 06/06/24 06:10 RBC 3.66 X10^6/uL (3.5-5.4) 06/06/24 06:10 Hgb 10.8 g/dL (12.0-16.0) L 06/06/24 06:10 Hct 32.1 % (36.0-47.0) L 06/06/24 06:10 MCV 87.6 fL (80.0-100.0) 06/06/24 06:10 MCH 29.5 pg (27.0-34.0) 06/06/24 06:10 MCHC 33.7 g/dL (33.0-35.0) 06/06/24 06:10 RDW 13.9 % (11.6-16.5) 06/06/24 06:10 Plt Count 230 X10^3/uL (150.0-450.0) 06/06/24 06:10 MPV 9.7 fL (7.4-11.0) 06/06/24 06:10 Neut % (Auto) 60.1 % (42.0-75.0) 06/06/24 06:10 Lymph % (Auto) 30.1 % (21.0-51.0) 06/06/24 06:10 Richardson % (Auto) 6.0 % (0.0-13.0) 06/06/24 06:10 Eos % (Auto) 2.4 % (0.9-2.9) 06/06/24 06:10 Baso % (Auto) 1.4 % (0.2-1.0) H 06/06/24 06:10 Neut # (Auto) 5.9 x10^3/uL (2.2-4.8) H 06/06/24 06:10 Lymph # (Auto) 3.0 X10^3/uL (1.3-2.9) H 06/06/24 06:10 Richardson # (Auto) 0.6 x10^3/uL (0.3-0.8) 06/06/24 06:10 Eos # (Auto) 0.2 x10^3/uL (0.0-0.2) 06/06/24 06:10 Baso # (Auto) 0.1 X10^3/uL (0.0-0.1) 06/06/24 06:10 Absolute Nucleated RBC 0.0 /100WBC 06/06/24 06:10 Sodium 139 mmol/L (136-145) 06/06/24 06:10 Corrected Sodium 140 mmol/L (136-145) 06/06/24 06:10 Potassium 3.9 mmol/L (3.5-5.1) 06/06/24 06:10 Chloride 103 mmol/L (98-107) 06/06/24 06:10 Carbon Dioxide 29.7 mmol/L (21-32) 06/06/24 06:10 BUN 23 mg/dL (7-18) H 06/06/24 06:10 Creatinine 1.31 mg/dL (0.55-1.02) H 06/06/24 06:10 Est GFR (MDRD) Af Amer 51 (>60) L 06/06/24 06:10 Est GFR (MDRD) Non-Af 42 (>60) L 06/06/24 06:10 Glucose 150 mg/dL (65-99) H 06/06/24 06:10 POC Glucose (mg/dL) 155 mg/dL (65-99) H 06/06/24 05:26 Calcium 9.5 mg/dL (8.5-10.1) 06/06/24 06:10 Corrected Calcium 10.4 mg/dL (8.5-10.1) H 06/06/24 06:10 Magnesium 1.7 mg/dL (2.0-2.9) L 06/06/24 06:10 Total Bilirubin 0.30 mg/dL (0.2-1.0) 06/06/24 06:10 AST 62 Units/L (15-37) H 06/06/24 06:10 ALT 45 Units/L (12-78) 06/06/24 06:10 Alkaline Phosphatase 49 Units/L (46-116) 06/06/24 06:10 Total Protein 6.5 g/dL (6.4-8.2) 06/06/24 06:10 Albumin 2.9 g/dL (3.4-5.0) L 06/06/24 06:10 Globulin 3.6 g/dL (2.5-4.5) 06/06/24 06:10 Albumin/Globulin Ratio 0.8 Ratio (1.1-2.1) L 06/06/24 06:10 Reason For Visit: ISCHEMIC RIGHT LEG Discharge Date Discharge Date: 06/06/24 Discharge Diagnosis All Active Problems (Updated 06/05/24 @ 13:09 by Israel Enriquez) Wound of right foot (Acute) Gastro-esophageal reflux disease without esophagitis (Acute) Gout (Acute) Diabetes (Acute) Essential (primary) hypertension (Acute) Atherosclerosis of [place] arteries of extremities with rest pain, right leg (Acute) Plan of Treatment: Continue with present treatment and follow up plan. Pt is to keep follow up appointment as instructed and take medications as ordered. Discharge Medications Discharge Medications: amoxicillin [From Augmentin] Allergy (Verified 04/16/24 09:49) clavulanic acid [From Augmentin] Allergy (Verified 04/16/24 09:49) levofloxacin [From Levaquin] Allergy (Verified 04/16/24 09:49) [place] , 5 mg , 1 po q 6 hrs PRN pain CONTINUE taking the following medications allopurinol 100 mg tablet 100 mg PO DAILY 06/02/24 [History] atorvastatin 20 mg tablet 20 mg PO HS 06/02/24 [History] clonidine HCl 0.3 mg tablet 0.3 mg PO DAILY 06/02/24 [History] fenofibrate 160 mg tablet 160 mg PO DAILY 06/02/24 [History] furosemide 20 mg tablet 20 mg PO DAILY 06/02/24 [History] gabapentin 600 mg tablet 600 mg PO DAILY 06/02/24 [History] glimepiride 4 mg tablet 4 mg PO DAILY 06/02/24 [History] hydralazine 25 mg tablet 25 mg PO 3XD 06/02/24 [History] hydrochlorothiazide 50 mg tablet 50 mg PO DAILY 06/02/24 [History] insulin degludec 100 unit/mL (3 mL) subcutaneous pen (Tresiba FlexTouch U-100 insulin) 60 unit subcut HS 06/02/24 [History] omeprazole 20 mg capsule,delayed release 20 mg PO DAILY 06/02/24 [History] Discharge Disposition Assessment: see hospital course Discharge Plan Discharge Plan Hospital Course: This patient is a 73-year-old female with history of bilateral critical ischemia who has had bilateral lower extremity arterial interventions within the past several months . She presented with painful and cool appearing right forefoot. She was started on therapeutic Lovenox and taken back to the operating suite on where she underwent on table arteriogram showing only one-vessel runoff below the knee by the anterior tibial artery which ended in the ankle and did not extend to the foot. I was able to get a wire across this and balloon the dorsalis pedis to increase blood flow th the foot as well as atherectomy and drug-coated balloon angioplasty of the takeoff of the anterior tibial artery. Post procedure her foot is warm and pain resolved. However because of the nonhealing wound to the right heel and the fact she has very poor blood flow otherwise with poor collateral flow Dr. Lai performed a tibial osteotomy in hopes to increase blood flow to the foot overall. She be discharged today on usual medications with the addition of [place], 5 mg tablets 1 every 6 hours PRN pain . She will follow-up with Dr. Lai on June 08. I will see her in my office on June 10 in follow-up. Patient Disposition: HOME, SELF-CARE Condition: Stable Health Concerns: Post Hospitalization: new medications and changes needed to prevent readmission or further decline. Pt educated and given instructions on all concerns. Plan of Treatment: Continue with present treatment and follow up plan. Pt is to keep follow up appointment as instructed and take medications as ordered. Assessment: see hospital course Prescriptions: New hydrocodone-acetaminophen 5-325 mg Tablet 1 tab PO Q4-6H MDD 6 PRNQty: 36 0RF ondansetron HCl 8 mg Tablet 8 mg PO Q8H PRN7 Days Qty: 21 0RF enoxaparin 30 mg/0.3 mL Syringe 30 mg SUBCUT QDAY 30 Days Qty: 9 0RF Continued gabapentin 600 mg tablet 600 mg PO DAILY atorvastatin 20 mg tablet 20 mg PO HS hydrochlorothiazide 50 mg tablet 50 mg PO DAILY clonidine HCl 0.3 mg tablet 0.3 mg PO DAILY Patient Comments: [NO ORIGINAL SIG] hydralazine 25 mg tablet 25 mg PO 3XD allopurinol 100 mg tablet 100 mg PO DAILY glimepiride 4 mg tablet 4 mg PO DAILY omeprazole 20 mg capsule,delayed release(DR/EC) 20 mg PO DAILY furosemide 20 mg tablet 20 mg PO DAILY fenofibrate 160 mg tablet 160 mg PO DAILY insulin degludec [Tresiba FlexTouch U-100] 100 unit/mL (3 mL) insulin pen 60 unit SUBCUT HS Patient Comments: [NO ORIGINAL SIG] Orders to Discharge Patient Discharge Orders: Discharge (Routine); Ordered 06/06/24 Ordered By: Ryder Hernandez Follow ups/Referrals Follow ups/Referrals: Eun Renae [Primary Care Provider] - 1 WEEK (CALL OFFICE AND SCHEDULE FOLLOW UP NEEDED ) Sb Lai [CONSULTING PHYSICIAN] - 1 WEEK (CALL OFFICE AND SCHEDULE FOLLOW UP) Ryder Hernandez [STAFF PHYSICIAN] - 1 WEEK (CALL OFFICE AND SCHEDULE FOLLOW UP ) Instructions Instructions: Endovascular Therapy for Peripheral Vascular Disease: What to Know After Activity Restrictions/Additional Instructions: DO NOT CHANGE DRESSING ON EXTERNAL FIXATOR CHANGE HEEL WOUND EVERY 2-3 DAYS WITH SILVER AQUACELL PAD USE CRUTCHES BUT WEIGHTBEARING IS ONLY 50% ON THE LEG YOU HAD SURGERY ON Stand Alone Forms: Excuse From Work or School, Find Help Web Site, Post Hospital Follow Up Care
== END 2024-06-06 12:15 | disposition home or self-care (01) ==
LOC: MED/SURG
PROVIDERS: ADMIT Surgery; ATTEND Surgery
PROC: APEXFIX (2024-06-05 12:55)
DX: R26.89 Other abnormalities of gait and mobility; E11.65 Type 2 diabetes mellitus with hyperglycemia; Z98.890 Other specified postprocedural states; K21.00 Gastro-esophageal reflux disease with esophagitis, without bleeding; X58.XXXA Exposure to other specified factors, initial encounter; L89.519 Pressure ulcer of right ankle, unspecified stage; M21.171 Varus deformity, not elsewhere classified, right ankle; Z79.4 Long term (current) use of insulin; I10 Essential (primary) hypertension; I70.221 Atherosclerosis of native arteries of extremities with rest pain, right leg; M10.9 Gout, unspecified; M24.571 Contracture, right ankle; E78.5 Hyperlipidemia, unspecified; S91.301A Unspecified open wound, right foot, initial encounter; E11.59 Type 2 diabetes mellitus with other circulatory complications